=== PATIENT | female | born 1995 | race American Indian/Alaskan Native ===

== ENCOUNTER 2017-05-27 12:56 | Emergency (ER) | payer SELFPAY ==
[2017-05-27 14:31] VITALS: BP 118/77
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
== END 2017-05-27 17:14 | disposition home or self-care (01) ==
LOC: ED 12:56
DX: Z04.41 Encounter for examination and observation following alleged adult rape (principal); J45.909 Unspecified asthma, uncomplicated; Z91.018 Allergy to other foods
CPT/HCPCS: 99282